=== PATIENT | male | born 1975 | race Caucasian/White ===

== ENCOUNTER → 2021-05-28 09:50 | Outpatient (CLI) | payer BC, SELFPAY ==
--- NOTE | ~2021-05-28 | US_ITS ---
EXAMINATION: US scrotum doppler EXAM DATE: 05/28/2021 10:15 INDICATION: N45.1 - Epididymitis . Right testicular pain. TECHNIQUE: Multiple grayscale and Doppler images of the testicles and scrotum were obtained bilateral ly. There is no prior study for comparison. FINDINGS: Right testicle measures 5.1 x 2.9 x 3.7 cm and is morphologically normal. Low resistance Doppler josh w confirmed. The epididymis is unremarkable. Trace hydrocele. Left testicle measures 5.4 x 2.6 x 3.1 cm and is morphologically normal. Low resistance Doppler flow confirmed. The epididymis is unremarkable. Trace hydrocele. IMPRESSION: 1. Trace hydroceles. Reviewed, dictated and finalized at location B. LEUM LAYER IMPRESSION: 1. Trace hydroceles.
== END ==
PROVIDERS: PCP Family Medicine; Visit Provider Physician Assistant
DX: N45.1 Epididymitis (principal)
CPT/HCPCS: 76870; 93976

== ENCOUNTER 2021-08-25 14:28 | Outpatient (CLI) | payer BC, SELFPAY ==
--- NOTE | ~2021-08-25 | CT_ITS ---
EXAMINATION: CT abdomen pelvis wo con DATE: 08/25/2021 14:52 INDICATION: Chronic prostatitis since April 2021. Right testicle pain. TECHNIQUE: Computed tomography (CT) of the abdomen and pelvis was performed without intravenous contr ast. Automated exposure control and iterative reconstruction technique were employed. Exam dose: 169 6.43 mGy-cm total exam DLP. COMPARISON: 05/28/2021 ultrasound scrotum FINDINGS: The lung bases are clear. Normal heart size. No pericardial or pleural effusion. Small sliding hiatal hernia. Status post cholecystectomy. Very small hepatic cysts are suggested, but too small to definitively characterize. No bile duct or p ancreatic duct dilatation. No pancreatic mass lesion or calcification. Normal splenic size. Normal morphology of the adrenal glands. No renal mass lesion or urinary tract calculus or hydroureteronephrosis. Solitary punctate prostate calcification. There is moderate diffuse thickening of the urinary bladder wall possibly due to the evacuated state. Normal caliber of the abdominal aorta. No intraperitoneal or retroperitoneal or pelvic mass lesion or adenopathy or ascites. Normal appendix. No bowel obstruction or intraperitoneal free air is detected. Small fat-containing umbilical hernia. No suspicious osteolytic or osteoblastic lesions. IMPRESSION: Status post cholecystectomy Normal appendix Reviewed, dictated and finalized at [facility]. Reviewed, dictated and finalized at location B.
== END 2021-08-25 14:29 | disposition home or self-care (01) ==
PROVIDERS: PCP Family Medicine; Visit Provider Urology
DX: N41.1 Chronic prostatitis (principal); Z90.49 Acquired absence of other specified parts of digestive tract
CPT/HCPCS: 74176